=== PATIENT | female | born 1970 | race Caucasian/White ===

== ENCOUNTER → 2017-02-14 | Outpatient (CLI) | payer BC ==
--- NOTE | 2017-02-14 12:12 | MM ---
Reason for exam: screening (asymptomatic). Baseline mammogram. History: Patient history of other cancer. Took hormonal contraceptives for 10 years. Physical Findings: Nurse did not find any significant physical abnormalities on exam. MG Screening Mammo w CAD Bilateral CC and MLO view(s) were taken. The breast tissue is heterogeneously dense. This may lower the sensitivity of mammography. There is no discrete abnormality. These results were verbally communicated with the patient and result sheet given to the patient on 02/14/17. ASSESSMENT: Negative, BI-RAD 1 RECOMMENDATION: Routine screening mammogram of both breasts in 1 year.
== END | disposition home or self-care (01) ==
LOC: RADMAMWWP 10:11
PROVIDERS: ATTEND Family Medicine
DX: Z12.31 Encounter for screening mammogram for malignant neoplasm of breast (principal)

== ENCOUNTER → 2017-11-19 | Outpatient (CLI) | payer BC ==
--- NOTE | 2017-11-19 14:01 | XR ---
EXAMINATION TYPE: XR ribs LT DATE OF EXAM: 11/19/2017 COMPARISON: NONE HISTORY: Pain TECHNIQUE: 2 views submitted FINDINGS: Visualized lung johnson clear. Visualized rib cage intact. IMPRESSION: No acute displaced rib fracture. If symptoms persist consider bone scan.
== END | disposition home or self-care (01) ==
LOC: RADXRMAIN 13:09
PROVIDERS: ATTEND Family Medicine
DX: R07.81 Pleurodynia (principal)

== ENCOUNTER 2018-01-11 19:22 | Emergency (ER) | payer OTHER ==
[2018-01-11 19:36] VITALS: RESP 18
[2018-01-11] MEDS ORDERED: RX INFO: IV CONTRAST WAS GIVEN 1 EACH MISC MISCELLANE PRN (19:46)
[2018-01-11] MEDS ORDERED: AMPICILLIN-SULBACTAM 3 GM in SODIUM CHLORIDE 0.9% 100 ML IVPB STA (19:46)
[2018-01-11] MEDS ORDERED: CLINDAMYCIN 600 MG in DEXTROSE 5% IN WATER 50 ML IVPB STA ×2 (19:46)
[2018-01-11] MEDS ORDERED: DEXAMETHASONE SOD PHOSPHATE 10 MG/ML 1 ML VIAL IV STA (19:47)
[2018-01-11] MEDS ORDERED: SODIUM CHLORIDE 0.9% 1,000 ML IV STA ×2 (19:47)
[2018-01-11] MEDS ORDERED: MORPHINE SULFATE 4 MG/ML SYRINGE IVP STA (19:48)
[2018-01-11] MEDS ORDERED: KETOROLAC 30 MG/ML 1 ML VIAL IVP STA (19:48)
--- NOTE | 2018-01-11 19:48 | ED ---
General Adult HPI - General Source: patient, RN notes reviewed, old records reviewed Mode of arrival: ambulatory Limitations: no limitations <Tim Toledo - Last Filed: 01/11/18 19:47> <Stanford Sotelo - Last Filed: 01/15/18 07:14> - General Chief complaint: Dental/Oral Stated complaint: Facial Swelling Time Seen by Provider: 01/11/18 19:40 - History of Present Illness Initial comments: This is a 47-year-old female to the ER for evaluation of facial swelling, severe facial swelling, history of dental caries no prior history of dental abscess. Patient started amoxicillin today for right-sided lower tooth pain. Swelling is significantly persisted since, patient states that she is having difficulty opening her mouth, no shortness of breath, cold chills and sweats all day (Tim Toledo) - Related Data Previous Rx's Medication Instructions Recorded Clindamycin [Cleocin] 150 mg PO Q6H #28 capsule 01/11/18 Allergies Allergy/AdvReac Type Severity Reaction Status Date / Time egg AdvReac Itching Verified 01/11/18 19:37 orange juice [[place]] AdvReac Itching Verified 01/11/18 19:37 Review of Systems ROS Other: All systems not noted in ROS Statement are negative. <Tim Toledo - Last Filed: 01/11/18 19:47> ROS Other: All systems not noted in ROS Statement are negative. <Stanford Sotelo - Last Filed: 01/15/18 07:14> ROS Statement: Those systems with pertinent positive or pertinent negative responses have been documented in the HPI. Past Medical History Past Medical History: No Reported History History of Any Multi-Drug Resistant Organisms: None Reported Past Surgical History: Appendectomy, Section, Cholecystectomy, Hysterectomy Additional Past Surgical History / Comment(s): two spots of malignant skin cancer removed. Past Psychological History: No Psychological Hx Reported Smoking Status: Current every day smoker Past Alcohol Use History: Occasional Past Drug Use History: None Reported <Tim Toledo - Last Filed: 01/11/18 19:47> General Exam Limitations: no limitations General appearance: alert, in no apparent distress Head exam: Present: atraumatic, normocephalic, normal inspection, other ( Significant right mandibular swelling and edema, tenderness, positive dental caries) Eye exam: Present: normal appearance, PERRL, EOMI. Absent: scleral icterus, conjunctival injection, periorbital swelling ENT exam: Present: normal exam, mucous membranes moist Neck exam: Present: normal inspection. Absent: tenderness, meningismus, lymphadenopathy Respiratory exam: Present: normal lung sounds bilaterally. Absent: respiratory distress, wheezes, rales, rhonchi, stridor Cardiovascular Exam: Present: regular rate, normal rhythm, normal heart sounds. Absent: systolic murmur, diastolic murmur, rubs, gallop, clicks GI/Abdominal exam: Present: soft, normal bowel sounds. Absent: distended, tenderness, guarding, rebound, rigid Extremities exam: Present: normal inspection, full ROM, normal capillary refill. Absent: tenderness, pedal edema, joint swelling, calf tenderness Back exam: Present: normal inspection Neurological exam: Present: alert, oriented X3, CN II-XII intact Psychiatric exam: Present: normal affect, normal mood Skin exam: Present: warm, dry, intact, normal color. Absent: rash <Tim Toledo - Last Filed: 01/11/18 19:47> Vital Signs 01/11/18 01/11/18 01/12/18 19:31 21:24 00:11 Temperature 98.3 F 98.6 F 98 F Pulse Rate 135 H 89 88 Respiratory 18 18 18 Rate Blood Pressure 101/68 116/56 109/52 O2 Sat by Pulse 98 100 98 Oximetry Medical Decision Making <Tim Toledo - Last Filed: 01/11/18 19:47> - Lab Data Result diagrams: 01/11/18 20:00 01/11/18 20:00 <Stanford Sotelo - Last Filed: 01/15/18 07:14> - Medical Decision Making I receive this patient has a sign out, pending the results of her computed tomography scan. There is not a discrete, drainable abscess. Discussed the results with the patient's OMFS, and patient will keep scheduled appointment Saturday. Discussed appropriate follow-up and return parameters. (Stanford Sotelo) - Lab Data Lab Results 01/11/18 01/11/18 Range/Units 20:00 20:00 WBC 19.9 H (3.8-10.6) k/uL RBC 4.01 (3.80-5.40) m/uL Hgb 13.1 (11.4-16.0) gm/dL Hct 38.6 (34.0-46.0) % MCV 96.1 (80.0-100.0) fL MCH 32.7 (25.0-35.0) pg MCHC 34.0 (31.0-37.0) g/dL RDW 11.9 (11.5-15.5) % Plt Count 295 (150-450) k/uL Neutrophils % 85 % Lymphocytes % 7 % Monocytes % 6 % Eosinophils % 2 % Basophils % 0 % Neutrophils # 16.9 H (1.3-7.7) k/uL Lymphocytes # 1.5 (1.0-4.8) k/uL Monocytes # 1.1 H (0-1.0) k/uL Eosinophils # 0.3 (0-0.7) k/uL Basophils # 0.0 (0-0.2) k/uL Sodium 140 (137-145) mmol/L Potassium 4.0 (3.5-5.1) mmol/L Chloride 106 (98-107) mmol/L Carbon Dioxide 20 L (22-30) mmol/L Anion Gap 14 mmol/L BUN 12 (7-17) mg/dL Creatinine 0.59 (0.52-1.04) mg/dL Est GFR (CKD-EPI)AfAm >90 (>60 ml/min/1.73 sqM) Est GFR (CKD-EPI)NonAf >90 (>60 ml/min/1.73 sqM) Glucose 115 H (74-99) mg/dL Calcium 9.6 (8.4-10.2) mg/dL Total Bilirubin 0.4 (0.2-1.3) mg/dL AST 16 (14-36) U/L ALT 17 (9-52) U/L Alkaline Phosphatase 71 (38-126) U/L Total Protein 6.2 L (6.3-8.2) g/dL Albumin 3.8 (3.5-5.0) g/dL Disposition <Tim Toledo - Last Filed: 01/11/18 19:47> Is patient prescribed a controlled substance at d/c from ED?: No <Stanford Sotelo - Last Filed: 01/15/18 07:14> Clinical Impression: Dental infection Disposition: HOME SELF-CARE Condition: Good Instructions: Toothache (ED) Prescriptions: Clindamycin [Cleocin] 150 mg PO Q6H #28 capsule Referrals: Gregorio Olson DO [Primary Care Provider] - 1-2 days Blas Villanueva DDS [STAFF PHYSICIAN] - 1-2 days
[2018-01-11 20:13] LABS: Basophils % (A) 0 %; Eosinophils # (A) 0.3 k/uL (0-0.7); Eosinophils % (A) 2 %; HCT 38.6 % (34.0-46.0); HGB 13.1 gm/dL (11.4-16.0); Lymphocytes # (A) 1.5 k/uL (1.0-4.8); Lymphocytes % (A) 7 %; MCH 32.7 pg (25.0-35.0); MCV 96.1 fL (80.0-100.0); Mean Platelet Volume 7.2; Monocytes # (A) 1.1 k/uL (0-1.0); Monocytes % (A) 6 %; Neutrophils # (A) 16.9 k/uL (1.3-7.7); Neutrophils % (A) 85 %; Platelet Count 295 k/uL (150-450); RBC 4.01 m/uL (3.80-5.40); RDW 11.9 % (11.5-15.5); WBC 19.9 k/uL (3.8-10.6)
[2018-01-11 20:26] LABS: ALT 17 U/L (9-52); AST 16 U/L (14-36); Albumin 3.8 g/dL (3.5-5.0); Alkaline Phosphatase 71 U/L (38-126); Anion Gap 14 mmol/L; Blood Urea Nitrogen 12 mg/dL (7-17); Calcium 9.6 mg/dL (8.4-10.2); Carbon Dioxide 20 mmol/L (22-30); Chloride 106 mmol/L (98-107); Glucose 115 mg/dL (74-99); Sodium 140 mmol/L (137-145); Total Bilirubin 0.4 mg/dL (0.2-1.3); Total Protein 6.2 g/dL (6.3-8.2)
[2018-01-11] MEDS ORDERED: ONDANSETRON 4 MG/2 ML VIAL IVP STA (20:50)
--- NOTE | 2018-01-11 21:22 | CT ---
EXAMINATION TYPE: CT soft tissue neck w con DATE OF EXAM: 01/11/2018 COMPARISON: NONE HISTORY: Right sided facial swelling CT DLP: 359.9 mGycm CONTRAST: CT scan of the neck is performed with IV Contrast, patient injected with 100 mL of Isovue 300. Contrast enhanced CT of the neck was performed from the skull base through the lung apices. Streak ar tifact from dental amalgam limits evaluation. Soft tissue edema noted extending along the right mandibular body and ramus. Evaluation is limited by extensive streak artifact from dental amalgam. I do not see evidence for drainable abscess. No evide nce for osteomyelitis. AIRWAY: The supraglottic, glottic, and subglottic portions of the airway appear patent and free of mass. SALIVARY GLANDS: The submandibular and parotid glands are free of mass or inflammatory process. THYROID GLAND: No nodules or masses seen. LYMPH NODES: No adenopathy seen greater than 1cm. LUNG APICES: No nodule or mass is seen. OTHER: Vascular structures are patent. No significant degenerative change of the cervical spine. IMPRESSION: Facial cellulitis as noted above of uncertain etiology. As noted dental evaluation is severely limite d by streak artifact from dental amalgam.
[2018-01-12 00:12] VITALS: BP 109/52; PULSE 88; TEMP 98
== END 2018-01-12 00:11 | disposition home or self-care (01) ==
LOC: EC 19:22
DX: K04.7 Periapical abscess without sinus (principal); F17.200 Nicotine dependence, unspecified, uncomplicated; Z91.012 Allergy to eggs; Z91.018 Allergy to other foods
CPT/HCPCS: 36415; 80053; 85025; 87040; 70491; 99284; 96365; 96367; 96375 ×4; 96361; J2270; J1100; J2405; J1885; J0295; Q9967

== ENCOUNTER → 2019-01-07 | Outpatient (CLI) | payer OTHER ==
--- NOTE | 2019-01-07 09:59 | XR ---
EXAMINATION TYPE: XR finger RT DATE OF EXAM: 01/07/2019 COMPARISON: NONE HISTORY: Possible foreign body TECHNIQUE: Three views are submitted. FINDINGS: The osseous structures are intact. The joint spaces are preserved and there is no acute fracture or dislocation. Diffuse soft tissue edema. No metallic foreign body identified. IMPRESSION: 1. No definite metallic foreign body. Diffuse soft tissue edema correlate for cellulitis.
== END | disposition home or self-care (01) ==
LOC: RADXRMAIN 09:30
PROVIDERS: ATTEND Family Medicine
DX: R60.0 Localized edema (principal); L03.011 Cellulitis of right finger

== ENCOUNTER 2019-11-23 | Emergency (ER) | payer OTHER | END 2019-11-23 03:03 | disposition home or self-care (01) | CPT/HCPCS: 71101; 99283; 96372; J1885 ==

== ENCOUNTER 2022-03-13 19:33 | Emergency (ER) | payer BC, OTHER ==
[2022-03-13 19:48] VITALS: RESP 22; TEMP 98.2
[2022-03-13 20:07] LABS: Appearance,Urine Clear (Clear); Bilirubin,Urine Negative (Negative); Blood,Urine Large (Negative); Color,Urine Yellow; Glucose,Urine (UA) Negative (Negative); Hyaline Casts,Urine 1 /lpf (0-2); Ketones,Urine Negative (Negative); Leukocyte Esterase,Urine Trace (Negative); Mucus,Urine Occasional /hpf; Nitrite,Urine Negative (Negative); PH, Urine 5.5 (5.0-8.0); Protein,Urine 1+ (Negative); RBC,Urine >182 /hpf (0-5); Specific Gravity,Urine 1.031 (1.001-1.035); Squamous Epithelial Cell,Urine 1 /hpf (0-4); WBC,Urine 9 /hpf (0-5)
[2022-03-13] MEDS ORDERED: SODIUM CHLORIDE 0.9% 1,000 ML IV STA (20:27)
[2022-03-13] MEDS ORDERED: ONDANSETRON 4 MG/2 ML VIAL IVP STA (20:27)
[2022-03-13] MEDS ORDERED: HYDROmorphone 0.5 MG/0.5 ML SYRINGE IVP STA ×2 (20:27→23:00)
[2022-03-13] MEDS ORDERED: KETOROLAC 15 MG/ML 1 ML VIAL IVP STA (20:27)
--- NOTE | 2022-03-13 20:31 | ED ---
General Adult HPI - General Chief complaint: Abdominal Pain Stated complaint: Kidney Stones Time Seen by Provider: 03/13/22 20:16 Source: patient, RN notes reviewed Mode of arrival: ambulatory Limitations: no limitations - History of Present Illness Initial comments: 51-year-old female presents to the emergency department for evaluation of left- sided flank pain, onset yesterday afternoon. Patient states the pain was accompanied by urinary frequency and mild nausea. States her symptoms resolved, then returned again this evening. Patient states the pain is severe and she feels sick to her stomach. suspects patient has a kidney stone though patient denies any history. Endorses hematuria. Denies fever, chills, headache, chest pain, difficulty breathing, diarrhea, back pain, or strenuous activity. - Related Data Previous Rx's Medication Instructions Recorded Clindamycin [Cleocin] 150 mg PO Q6H #28 capsule 01/11/18 Ibuprofen [Motrin] 600 mg PO Q8HR PRN #30 tab 11/23/19 Lidocaine 5% Patch [Lidoderm] 1 patch TOPICAL DAILY #30 patch 11/23/19 HYDROcodone/APAP 5-325MG [[place] 5] 1 each PO Q6HR PRN #12 tab 03/13/22 Ondansetron Odt [Zofran Odt] 4 mg PO Q8HR PRN #10 tab 03/13/22 Tamsulosin [Flomax] 0.4 mg PO DAILY #7 cap 03/13/22 Allergies Allergy/AdvReac Type Severity Reaction Status Date / Time egg AdvReac Itching Verified 03/13/22 19:48 orange juice [[place]] AdvReac Itching Verified 03/13/22 19:48 Review of Systems ROS Statement: Those systems with pertinent positive or pertinent negative responses have been documented in the HPI. ROS Other: All systems not noted in ROS Statement are negative. Past Medical History Past Medical History: No Reported History History of Any Multi-Drug Resistant Organisms: None Reported Past Surgical History: Appendectomy, Section, Cholecystectomy, Hysterectomy Additional Past Surgical History / Comment(s): two spots of malignant skin cancer removed. Past Psychological History: No Psychological Hx Reported Past Alcohol Use History: Occasional Past Drug Use History: None Reported General Exam Limitations: no limitations General appearance: alert, in distress (Well-developed, well nourished female who appears very uncomfortable. She is restless and unable to sit due to pain. Initial temperature 98.2, pulse 98, respirations 22, blood pressure 134/89, pulse ox 98% on room air.) Eye exam: Present: normal appearance. Absent: scleral icterus, conjunctival injection ENT exam: Present: normal exam, normal oropharynx, mucous membranes moist Neck exam: Present: normal inspection, full ROM. Absent: lymphadenopathy Respiratory exam: Present: normal lung sounds bilaterally. Absent: respiratory distress, wheezes, rales, rhonchi, stridor, chest wall tenderness Cardiovascular Exam: Present: regular rate, normal rhythm, normal heart sounds. Absent: systolic murmur, diastolic murmur, rubs, gallop, clicks GI/Abdominal exam: Present: soft, normal bowel sounds. Absent: distended, tenderness, guarding, rebound, rigid Back exam: Present: CVA tenderness (L) Neurological exam: Present: alert, oriented X3 Psychiatric exam: Present: anxious Skin exam: Present: warm, dry, intact, normal color. Absent: rash Course Vital Signs 03/13/22 03/13/22 19:44 23:23 Temperature 98.2 F Pulse Rate 98 70 Respiratory 22 Rate Blood Pressure 134/89 112/64 O2 Sat by Pulse 98 Oximetry - Reevaluation(s) Reevaluation #1: 03/13/22 21:24 Upon reevaluation, patient is feeling substantially improved. States her pain is resolved. Tolerating oral intake without difficulty. Awaiting results from CT. Medical Decision Making - Medical Decision Making 51-year-old female with a past medical history of cholecystectomy, appendectomy, and hysterectomy presents to the emergency department for evaluation of left flank pain, onset this afternoon. Upon exam, patient is restless and appears very uncomfortable. She is nauseous and complaining of left flank pain. Laboratory studies were obtained showing mild leukocytosis which is likely reactive. BUN is slightly elevated at 22, creatinine and GFR within normal limits. Urinalysis was positive for large amount of blood. CT confirms presence of a 3 mm obstructing stone. The patient was given IV fluids and medications for pain and nausea with significant improvement. She will be prescribed Flomax and given a urine strainer. Prescriptions for [place] and Zofran also sent to the pharmacy. Follow-up care was reviewed with patient and spouse. Questions answered, they verbalize understanding and agreement with this plan. Attending: Helmreich. - Lab Data Result diagrams: 03/13/22 20:44 03/13/22 20:44 Lab Results 03/13/22 03/13/22 03/13/22 Range/Units 19:54 20:44 20:44 WBC 11.7 H (3.8-10.6) k/uL RBC 4.33 (3.80-5.40) m/uL Hgb 14.7 (11.4-16.0) gm/dL Hct 43.7 (34.0-46.0) % MCV 100.8 H (80.0-100.0) fL MCH 34.0 (25.0-35.0) pg MCHC 33.7 (31.0-37.0) g/dL RDW 12.2 (11.5-15.5) % Plt Count 318 (150-450) k/uL MPV 7.3 Neutrophils % 71 % Lymphocytes % 20 % Monocytes % 6 % Eosinophils % 1 % Basophils % 0 % Neutrophils # 8.3 H (1.3-7.7) k/uL Lymphocytes # 2.3 (1.0-4.8) k/uL Monocytes # 0.7 (0-1.0) k/uL Eosinophils # 0.2 (0-0.7) k/uL Basophils # 0.0 (0-0.2) k/uL Sodium 137 (137-145) mmol/L Potassium 4.2 (3.5-5.1) mmol/L Chloride 104 (98-107) mmol/L Carbon Dioxide 26 (22-30) mmol/L Anion Gap 7 mmol/L BUN 22 H (7-17) mg/dL Creatinine 0.95 (0.52-1.04) mg/dL Est GFR (CKD-EPI)AfAm 80 (>60 ml/min/1.73 sqM) Est GFR (CKD-EPI)NonAf 69 (>60 ml/min/1.73 sqM) Glucose 131 H (74-99) mg/dL Calcium 9.4 (8.4-10.2) mg/dL Total Bilirubin 0.2 (0.2-1.3) mg/dL AST 26 (14-36) U/L ALT 16 (4-34) U/L Alkaline Phosphatase 117 (38-126) U/L Total Protein 7.1 (6.3-8.2) g/dL Albumin 4.5 (3.5-5.0) g/dL Urine Color Yellow Urine Appearance Clear (Clear) Urine pH 5.5 (5.0-8.0) Ur Specific [place] 1.031 (1.001-1.035) Urine Protein 1+ H (Negative) Urine Glucose (UA) Negative (Negative) Urine Ketones Negative (Negative) Urine Blood Large H (Negative) Urine Nitrite Negative (Negative) Urine Bilirubin Negative (Negative) Urine Urobilinogen 2.0 (<2.0) mg/dL Ur Leukocyte Esterase Trace H (Negative) Urine RBC >182 H (0-5) /hpf Urine WBC 9 H (0-5) /hpf Ur Squamous Epith Cells 1 (0-4) /hpf Hyaline Casts 1 (0-2) /lpf Urine Mucus Occasional H (None) /hpf - Radiology Data Radiology results: report reviewed, image reviewed CT of the abdomen and pelvis without contrast was obtained. Report was reviewed in its entirety. Impression per Dr. Mota is a small obstructing calculus at the left ureterovesical chest. Left-sided hydronephrosis and hydroureter. No other calculus seen. Disposition Clinical Impression: Renal calculus, left Disposition: HOME SELF-CARE Condition: Stable Instructions (If sedation given, give patient instructions): Kidney Stones (ED) Additional Instructions: Take [place] for severe pain. Zofran is for nausea. Drink lots of water. Urinate frequently. Strain your urine. Follow up with your PCP or urology. Call in the morning to schedule an appointme nt. Return to the emergency department with any new, worsening, or concerning symptoms. Prescriptions: Tamsulosin [Flomax] 0.4 mg PO DAILY #7 cap HYDROcodone/APAP 5-325MG [[place] 5] 1 each PO Q6HR PRN #12 tab PRN Reason: Pain Ondansetron Odt [Zofran Odt] 4 mg PO Q8HR PRN #10 tab PRN Reason: Nausea Is patient prescribed a controlled substance at d/c from ED?: Yes When asked, does pt state using other controlled substances?: Yes If prescribed controlled substance>3 days was MAPS reviewed?: Prescribed <3 Days If opioid is for acute pain is fill amount 7 days or less?: Yes If Rx opioid, was Start Talking consent form obtained?: Yes Referrals: Gregorio Olson DO [Primary Care Provider] - 1-2 days Francois Hernadez MD [STAFF PHYSICIAN] - 1-2 days
[2022-03-13 20:48] LABS: Basophils % (A) 0 %; Eosinophils # (A) 0.2 k/uL (0-0.7); Eosinophils % (A) 1 %; HCT 43.7 % (34.0-46.0); HGB 14.7 gm/dL (11.4-16.0); Lymphocytes # (A) 2.3 k/uL (1.0-4.8); Lymphocytes % (A) 20 %; MCHC 33.7 g/dL (31.0-37.0); MCV 100.8 fL (80.0-100.0); Mean Platelet Volume 7.3; Monocytes # (A) 0.7 k/uL (0-1.0); Monocytes % (A) 6 %; Neutrophils # (A) 8.3 k/uL (1.3-7.7); Neutrophils % (A) 71 %; Platelet Count 318 k/uL (150-450); RBC 4.33 m/uL (3.80-5.40); RDW 12.2 % (11.5-15.5); WBC 11.7 k/uL (3.8-10.6)
[2022-03-13 20:57] LABS: Albumin 4.5 g/dL (3.5-5.0); Calcium 9.4 mg/dL (8.4-10.2); Potassium 4.2 mmol/L (3.5-5.1); Total Bilirubin 0.2 mg/dL (0.2-1.3); Total Protein 7.1 g/dL (6.3-8.2)
--- NOTE | 2022-03-13 21:57 | CT ---
EXAMINATION TYPE: CT abdomen pelvis wo con DATE OF EXAM: 03/13/2022 COMPARISON: None HISTORY: left flank pain, suspect renal calculi CT DLP: 469.3 mGycm Automated exposure control for dose reduction was used. Images obtained from the diaphragm to the floor of the pelvis with no contrast. There is some linear density at the lung bases. Heart size is normal. No pericardial effusion. No ple ural effusion. There are clips from cholecystectomy. Liver and spleen are intact. The stomach is inta ct. The bile ducts are not dilated. No evidence of pancreatic mass. The knees have normal size. There is some left-sided hydronephrosis and hydroureter. There is a nonob structing 3 mm calculus at the ureterovesical junction on the left side. Bladder distends smoothly. N o inguinal hernia. No retroperitoneal adenopathy. Right kidney shows no sign of obstruction. There ar e clips apparently from appendectomy. No mesenteric edema. No ascites or free air. No sign of a bowel obstruction. The lumbar vertebrae hav e normal alignment. No compression fracture. There is vacuum disc at L5-S1 with disc space narrowing. No focal bone destruction. The bony pelvis is intact. The hip joints are intact. No sign of a pelvic mass. IMPRESSION: Small obstructing calculus at the left ureterovesical junction. Left-sided hydronephrosis and hydrour eter. No other calculus seen.
[2022-03-13] MEDS ORDERED: ONDANSETRON 4 MG ODT STARTER PACK 2 TAB BTL PO STA (22:38)
[2022-03-13] MEDS ORDERED: TAMSULOSIN 0.4 MG CAP.ER.24H PO STA (22:38)
[2022-03-13] MEDS ORDERED: ACET/COD 300 MG/30 MG STARTER PACK 6 TAB BTL PO STA (22:38)
[2022-03-13 23:23] VITALS: BP 112/64; PULSE 70
== END 2022-03-13 23:36 | disposition home or self-care (01) ==
LOC: EC 19:33
DX: N13.2 Hydronephrosis with renal and ureteral calculous obstruction (principal)
CPT/HCPCS: 36415; 80053; 85025; 81001; 74176; 99284; 96374; 96375 ×2; 96376; 96361; J2405; J1885; S0119; J1170

== ENCOUNTER → 2022-03-21 | Outpatient (CLI) | payer BC, OTHER ==
--- NOTE | 2022-03-21 12:50 | XR ---
EXAMINATION TYPE: XR abdomen 1V DATE OF EXAM: 03/21/2022 COMPARISON: CT scan 03/13/2022 HISTORY: Pain TECHNIQUE: One view abdominal series FINDINGS: The osseous structures are intact. The bowel gas pattern is nonspecific. A surgical clip right upper quadrant. No definite suspicious calcifications overlying the renal outlines which are somewhat limi nguyen by overlying bowel content. Tiny punctate calcification in the pelvis on the left likely is consi stent with a stable location of the left bladder or UVJ calculus surgical clips are seen in the gallb ladder fossa. IMPRESSION: 1. Suspected persistent 2 mm calcification overlying the bladder or left UVJ.
== END | disposition home or self-care (01) ==
LOC: RADXRMAIN 12:18
PROVIDERS: ATTEND Family Medicine
DX: R10.9 Unspecified abdominal pain (principal)
CPT/HCPCS: 74018

== ENCOUNTER → 2022-06-25 | Outpatient (CLI) | payer OTHER, BC ==
--- NOTE | 2022-06-25 07:54 | BD ---
EXAMINATION TYPE: Axial Bone Density DATE OF EXAM: 06/25/2022 COMPARISON: FIRST DEXA AT [facility] CLINICAL HISTORY: 51 years year old Female. ICD-10 CODE: N95.1 post menopausal symptoms Height: 58.5IN Weight: 141 FRAX RISK QUESTIONS: Secondary Osteoporosis: 3. Menopause before 45: YES PARTIAL HYSTERECTOMY ABOUT 32 YRS OLD Current Tobacco Use: YES RISK FACTORS HISTORY OF: Surgery to Wrist (right): YES CARPAL TUNNEL When: 2019 Family History of Osteoporosis: UNSURE Active: YES Diet low in dairy products/other sources of calcium: YES Postmenopausal woman: YES Lost more than 2 inches in height since high school: NO MEDICATIONS: Additional Medications: GI MED, VITAMIN D Additional History: EXAM MEASUREMENTS: Bone mineral densitometry was performed using the [employer] System. Bone mineral density as measured about the Lumbar spine is: ----- L1-L4(G/cm2): 0.981 T Score Values are as follows: ----- L1: -1.9 ----- L2: -1.8 ----- L3: -1.0 ----- L4: -2.0 ----- L1-L4: -1.[address] [facility] Bone mineral density about the R hip (g/cm2): 0.808 Bone mineral density about the L hip (g/cm2): 0.827 T Score values are as follows: -----R Neck: -2.6 -----L Neck: -2.3 -----R Total: -1.6 -----L Total: -1.4 FRAX%s: The graph provided illustrates a 10% chance for a major osteoporotic fx and a 3.2% chance for the hips probability for fx in 10 years time. IMPRESSION: Osteoporosis (T Score less than -2.5). There is increased fracture risk and therapy is usually indicated based on age. Re-Screen 1-2 years. NOTE: T-SCORE=SD OF THE YOUNG ADULT MEAN.
== END | disposition home or self-care (01) ==
LOC: RADBDWWP 07:18
PROVIDERS: ATTEND Family Medicine
DX: M81.0 Age-related osteoporosis without current pathological fracture (principal)
CPT/HCPCS: 77080

== ENCOUNTER 2023-02-22 12:09 | Day surgery (SDC) | payer OTHER, BC ==
[2023-02-19 10:37] VITALS: BMI 26.2
[~2023-02-22 12:09] MED LIST: LACTATED RINGERS 1,000 ML IV SCH
[2023-02-22 13:07] VITALS: TEMP 98.6
[2023-02-22] MEDS ORDERED: PROPOFOL 10 MG/ML 20 ML VIAL IV ONE (13:27)
--- NOTE | 2023-02-22 13:39 | P.PCN ---
Date of Procedure: 02/22/23 Procedure(s) Performed: BRIEF HISTORY: Patient is a 52-year-old, pleasant, white female scheduled for an upper endoscopy as a part of evaluation of long-standing history of GERD.. Currently on Prilosec 20 mg daily. PROCEDURE PERFORMED: Esophagogastroduodenoscopy. PREOPERATIVE DIAGNOSIS: Long-standing History of GERD. IV sedation per anesthesia. PROCEDURE: After informed consent was obtained, the patient was brought into the endoscopy unit. IV sedation was administered by Anesthesia under continuous monitoring. Initially the Olympus GIF-140 video endoscope was inserted into the mouth. Esophagus intubated without any difficulty. It was gradually advanced into the stomach and duodenum and carefully examined. The bulb and the second part of the duodenum appeared normal. The scope at this time was withdrawn to the stomach, adequately insufflated with air, and upon careful examination, mucosa of the antrum, body, cardia and the fundus appeared normal. The scope was then withdrawn into the esophagus. All hiatal hernia noted. The GE junction was located at 36 cm from the incisors. The esophagus appeared normal. There was one erosion at the GE junction consistent with LA grade a reflux esophagitis. Rest of esophagus appeared normal and the patient tolerated the procedure well. IMPRESSION: 1. Small hiatal hernia. 2. One superficial erosion at the GE junction consistent with LA grade A reflux esophagitis. RECOMMENDATIONS: The findings of this examination were discussed with the patient is well as her family. She was advised to continue with omeprazole 20 mg daily and follow antireflux measures..
[2023-02-22 14:08] VITALS: BP 103/67; PULSE 82; RESP 16
== END 2023-02-22 14:17 | disposition home or self-care (01) ==
LOC: ORWHC2ENDO 12:09
PROVIDERS: ATTEND Internal Medicine Gastroenterology
DX: K25.9 Gastric ulcer, unspecified as acute or chronic, without hemorrhage or perforation (principal); K44.9 Diaphragmatic hernia without obstruction or gangrene; K21.9 Gastro-esophageal reflux disease without esophagitis; F17.210 Nicotine dependence, cigarettes, uncomplicated; Z79.899 Other long term (current) drug therapy
CPT/HCPCS: 43235; J2704